=== PATIENT | female | born 1975 | race African-American/Black ===

== ENCOUNTER 2019-01-17 14:24 | Inpatient (IN) ==
[2019-01-17] MEDS ORDERED: ACETAMINOPHEN 325 MG TABLET PO PRN (14:45)
[2019-01-17] MEDS ORDERED: MAGNESIUM SULF RIDER 4 GM in PREMIX 1 EACH IV PRN (14:45)
[2019-01-17] MEDS ORDERED: BISACODYL 5 MG TABLET PO PRN (14:45)
[2019-01-17] MEDS ORDERED: MAGNESIUM SULF RIDER 2 GM in PREMIX 1 EACH IV PRN (14:45)
[2019-01-17] MEDS ORDERED: ONDANSETRON 4 MG/2 ML VIAL IV PRN (14:45)
[2019-01-17] MEDS ORDERED: ZALEPLON 5 MG CAPSULE PO PRN (14:45)
[2019-01-17] MEDS ORDERED: ALPRAZolam 0.25 MG TABLET PO PRN (16:48)
[2019-01-17] MEDS ORDERED: diphenhydrAMINE CAP 25 MG CAPSULE PO PRN (16:48)
[2019-01-17] MEDS ORDERED: MAGNESIUM HYDROXIDE SUSP 30 ML UDCUP PO PRN (16:49)
[2019-01-17 18:21] LABS: Basophils % 0.4 % (0.0-0.8); Eosinophils # 0.3 10*3/uL (0.0-0.87); Eosinophils % 3.5 % (0.00-10.9); Hematocrit 40.7 VOL% (35.7-47.0); Hemoglobin 12.9 GM/DL (12.0-16.0); Immature Granulocytes % 0.3 %; Immature Granulocytes Absolute 0.02 #; Lymphocytes # 1.5 10*3/uL (1.4-4.0); Lymphocytes % 20.7 % (21.3-54.2); Mean Corpuscular HGB Conc 31.7 GM/DL (32-36); Mean Platelet Volume 10.4 FL (9.6-12.0); Monocytes % 5.3 % (1.7-12.7); Neutrophils % 69.8 % (38.7-73.9); Platelet Count 260 T/CUMM (130-400); Red Blood Count 4.79 MC/CUMM (3.8-5.5); Red Cell Distribution Width 13.9 % (9.3-17.3); White Blood Count 7.4 T/CUMM (4-12)
[2019-01-17 18:28] LABS: Calcium 9.1 MG/DL (8.5-10.1); Osmolality,Calculated 277.4 MOS/KG (273-304)
[2019-01-17] MEDS ORDERED: ENOXAPARIN 40 MG/0.4 ML SYRINGE SUBCUT SCH (21:00)
[2019-01-17 23:40] LABS: Apearance,Urine CLEAR (Clear); Bilirubin,Urine Negative (Negative); Blood, Urine Small mg/dL (Negative); Glucose,Urine (UA) 50 mg/dL (Negative); Ketones,Urine Negative (Negative); Mucus,Urine Occasional /LPF (Occasional); Nitrite,Urine Negative (Negative); Protein,Urine Negative; RBC,Urine 3 /HPF (0-4); Urine Color Yellow (Yellow); Urine Specific Gravity 1.016 (1.001-1.035); Urine Urobilinogen < 2.0 EU/DL (0.2-1.0); WBC,Urine 1 /HPF (0-6)
[2019-01-18 05:05] LABS: Basophils % 0.5 % (0.0-0.8); Eosinophils # 0.3 10*3/uL (0.0-0.87); Eosinophils % 4.3 % (0.00-10.9); Hemoglobin 12.3 GM/DL (12.0-16.0); Immature Granulocytes % 0.1 %; Immature Granulocytes Absolute 0.01 #; Lymphocytes # 2.4 10*3/uL (1.4-4.0); Lymphocytes % 31.2 % (21.3-54.2); Mean Corpuscular HGB Conc 32.4 GM/DL (32-36); Mean Corpuscular Volume 85.6 FL (87-102); Mean Platelet Volume 10.5 FL (9.6-12.0); Monocytes % 7.8 % (1.7-12.7); Neutrophils % 56.1 % (38.7-73.9); Platelet Count 229 T/CUMM (130-400); Red Blood Count 4.44 MC/CUMM (3.8-5.5); Red Cell Distribution Width 13.8 % (9.3-17.3); White Blood Count 7.7 T/CUMM (4-12)
[2019-01-18 05:44] LABS: Calcium 8.9 MG/DL (8.5-10.1); Thyroid Stimulating Hormone 0.679 uIU/ml (0.358-3.74)
[2019-01-18] MEDS ORDERED: ceFAZolin 1,000 MG in SYRINGE 1 EACH IV ONE (06:00)
[2019-01-18] MEDS ORDERED: ceFAZolin 1,000 MG VIAL IRRIG ONE (06:00)
[2019-01-18] MEDS: POTASSIUM CHLORIDE RIDER 10 MEQ in PREMIX 1 EACH IV PRN ×2 (06:53→09:23)
[2019-01-18] MEDS: SODIUM CHLORIDE 0.9% 1,000 ML IV SCH (06:53)
[2019-01-18] MEDS ORDERED: DILTIAZEM 60 MG TABLET PO SCH (09:00)
[2019-01-18] MEDS ORDERED: PROPRANOLOL 40 MG TABLET PO SCH (09:00)
[2019-01-18] MEDS: ISOSORBIDE MONONITRATE 30 MG TABLET PO SCH (09:24)
[2019-01-18] MEDS: PANTOPRAZOLE 40 MG TABLET PO SCH (09:24)
[2019-01-18] MEDS: LISINOPRIL 20 MG TABLET PO SCH (09:24)
[2019-01-18] MEDS: hydroCHLOROthiazide 12.5 MG CAPSULE PO SCH (14:39)
[2019-01-18] MEDS ORDERED: LIDOCAINE 1% 20 ML VIAL ONE (15:17)
[2019-01-18] MEDS ORDERED: HEPARIN/NACL 0.9% 2 UNITS/ML 500 ML IV ONE (15:17)
[2019-01-18] MEDS ORDERED: ceFAZolin 1,000 MG VIAL ONE (15:17)
[2019-01-18] MEDS ORDERED: fentaNYL 100 MCG/2 ML VIAL ONE ×2 (15:18→15:53)
[2019-01-18] MEDS ORDERED: MIDAZOLAM 2 MG/2 ML VIAL ONE ×2 (15:18→15:53)
[2019-01-18] MEDS ORDERED: TISSUE ADHESIVE 1 EACH APPLICATOR TOP ONE (16:24)
[2019-01-18] MEDS ORDERED: oxyCODONE/ACETAMINOPHEN 5-325 MG TABLET PO PRN (16:39)
[2019-01-18] MEDS ORDERED: IBUPROFEN 400 MG TABLET PO PRN (16:39)
[2019-01-18] MEDS: FLECAINIDE 100 MG TABLET PO SCH (21:43)
[2019-01-18] MEDS: PROPRANOLOL 40 MG TABLET PO SCH (21:43)
[2019-01-18] MEDS: ceFAZolin 1,000 MG in SYRINGE 1 EACH IV SCH (22:46)
[2019-01-19] MEDS: SODIUM CHLORIDE 0.9% 1,000 ML IV SCH (05:11)
[2019-01-19 05:29] LABS: Basophils % 0.3 % (0.0-0.8); Eosinophils # 0.3 10*3/uL (0.0-0.87); Hematocrit 39.7 VOL% (35.7-47.0); Hemoglobin 12.6 GM/DL (12.0-16.0); Immature Granulocytes % 0.4 %; Immature Granulocytes Absolute 0.03 #; Lymphocytes # 1.4 10*3/uL (1.4-4.0); Lymphocytes % 18.6 % (21.3-54.2); Mean Corpuscular HGB Conc 31.7 GM/DL (32-36); Mean Corpuscular Volume 85.6 FL (87-102); Mean Platelet Volume 9.7 FL (9.6-12.0); Monocytes % 6.2 % (1.7-12.7); Neutrophils % 70.5 % (38.7-73.9); Platelet Count 207 T/CUMM (130-400); Red Blood Count 4.64 MC/CUMM (3.8-5.5); White Blood Count 7.4 T/CUMM (4-12)
[2019-01-19 05:48] LABS: Calcium 8.7 MG/DL (8.5-10.1); Osmolality,Calculated 279.4 MOS/KG (273-304)
[2019-01-19] MEDS: ceFAZolin 1,000 MG in SYRINGE 1 EACH IV SCH (06:15)
[2019-01-19] MEDS: FLECAINIDE 100 MG TABLET PO SCH ×2 (09:00→20:27)
[2019-01-19] MEDS: LISINOPRIL 20 MG TABLET PO SCH (09:01)
[2019-01-19] MEDS: ISOSORBIDE MONONITRATE 30 MG TABLET PO SCH (09:01)
[2019-01-19] MEDS: PANTOPRAZOLE 40 MG TABLET PO SCH (09:01)
[2019-01-19] MEDS: hydroCHLOROthiazide 12.5 MG CAPSULE PO SCH (09:01)
[2019-01-19] MEDS: PROPRANOLOL 40 MG TABLET PO SCH ×2 (09:01→20:26)
[2019-01-20 06:00] LABS: Calcium 8.7 MG/DL (8.5-10.1); Osmolality,Calculated 278.4 MOS/KG (273-304)
[2019-01-20 06:34] LABS: Basophils % 0.5 % (0.0-0.8); Eosinophils # 0.4 10*3/uL (0.0-0.87); Eosinophils % 5.1 % (0.00-10.9); Hematocrit 38.6 VOL% (35.7-47.0); Hemoglobin 12.2 GM/DL (12.0-16.0); Immature Granulocytes % 0.5 %; Immature Granulocytes Absolute 0.04 #; Lymphocytes % 25.4 % (21.3-54.2); Mean Corpuscular HGB Conc 31.6 GM/DL (32-36); Mean Corpuscular Volume 86.2 FL (87-102); Mean Platelet Volume 10.2 FL (9.6-12.0); Monocytes % 7.4 % (1.7-12.7); Neutrophils % 61.1 % (38.7-73.9); Platelet Count 193 T/CUMM (130-400); Red Blood Count 4.48 MC/CUMM (3.8-5.5); Red Cell Distribution Width 13.9 % (9.3-17.3)
[2019-01-20] MEDS: LISINOPRIL 20 MG TABLET PO SCH ×2 (09:27→20:42)
[2019-01-20] MEDS: hydroCHLOROthiazide 12.5 MG CAPSULE PO SCH (09:27)
[2019-01-20] MEDS: FLECAINIDE 100 MG TABLET PO SCH ×2 (09:27→20:43)
[2019-01-20] MEDS: ISOSORBIDE MONONITRATE 30 MG TABLET PO SCH (09:28)
[2019-01-20] MEDS: PANTOPRAZOLE 40 MG TABLET PO SCH (09:28)
[2019-01-20] MEDS: PROPRANOLOL 40 MG TABLET PO SCH ×2 (10:36→20:42)
[2019-01-20] MEDS: POTASSIUM CHLORIDE 20 MEQ TABLET PO SCH (11:09)
[2019-01-21 05:45] LABS: Basophils % 0.4 % (0.0-0.8); Eosinophils # 0.4 10*3/uL (0.0-0.87); Eosinophils % 4.6 % (0.00-10.9); Hematocrit 37.8 VOL% (35.7-47.0); Hemoglobin 12.1 GM/DL (12.0-16.0); Immature Granulocytes % 0.2 %; Immature Granulocytes Absolute 0.02 #; Lymphocytes # 1.6 10*3/uL (1.4-4.0); Lymphocytes % 19.2 % (21.3-54.2); Mean Corpuscular Volume 85.3 FL (87-102); Mean Platelet Volume 10.2 FL (9.6-12.0); Monocytes % 7.4 % (1.7-12.7); Neutrophils % 68.2 % (38.7-73.9); Platelet Count 193 T/CUMM (130-400); Red Blood Count 4.43 MC/CUMM (3.8-5.5); Red Cell Distribution Width 13.8 % (9.3-17.3); White Blood Count 8.2 T/CUMM (4-12)
[2019-01-21 05:55] LABS: Calcium 9.2 MG/DL (8.5-10.1); Osmolality,Calculated 282.1 MOS/KG (273-304)
[2019-01-21 08:47] VITALS: BP 174/97
[2019-01-21] MEDS: ISOSORBIDE MONONITRATE 30 MG TABLET PO SCH (09:40)
[2019-01-21] MEDS: hydroCHLOROthiazide 12.5 MG CAPSULE PO SCH (09:40)
[2019-01-21] MEDS: PROPRANOLOL 40 MG TABLET PO SCH (09:41)
[2019-01-21] MEDS: PANTOPRAZOLE 40 MG TABLET PO SCH (09:43)
[2019-01-21] MEDS: FLECAINIDE 100 MG TABLET PO SCH (09:43)
[2019-01-21] MEDS: LISINOPRIL 20 MG TABLET PO SCH (09:43)
[2019-01-21] MEDS: POTASSIUM CHLORIDE 20 MEQ TABLET PO SCH (09:43)
== END 2019-01-21 10:10 | disposition home or self-care (01) | DRG 227 ==
LOC: N.TELEN 15:59 → INTOOBSV 15:59
PROVIDERS: ADMIT Internal Medicine Clinical Cardiac Electrophysiology; ATTEND Internal Medicine Clinical Cardiac Electrophysiology
PROC: CLDCICD (2019-01-18 11:45)